=== PATIENT | female | born 1950 | race Caucasian/White ===

== ENCOUNTER 2018-11-05 11:40 | Outpatient (CLI) | payer MEDICARE, BC, SELFPAY ==
[2018-11-05 12:57] LABS: Hemoglobin A1C 6.2 % (4.5-6.2)
[2018-11-05 13:19] LABS: ALT 13 U/L (12-78); AST 13 U/L (15-37); Albumin 3.9 g/dL (3.4-5.0); Alkaline Phosphatase 63 U/L (46-116); Anion Gap 8.7 mmol/L (3-11); BUN 32 mg/dL (7-18); Bilirubin, Total 0.5 mg/dL (0.2-1.0); CO2 27.3 mmol/L (21.0-32.0); CREATININE 1.62 mg/dL (0.55-1.02); Calcium 9.4 mg/dL (8.5-10.1); Chloride 105 mmol/L (98-107); Cholesterol 199 mg/dL (50-200); Estimated GFR 31.41 (mL/min/1.73m2); Glucose 110 mg/dL (70-100); HDL Cholesterol 37 mg/dL (40-60); LDL CHOLESTEROL 142 mg/dL (<100); Sodium 141 mmol/L (136-145); Total Protein 7.4 g/dL (6.4-8.2); Triglyceride 103 mg/dL (30-150)
== END 2018-11-05 12:00 ==
DX: I10 Essential (primary) hypertension (principal); E03.9 Hypothyroidism, unspecified; E78.5 Hyperlipidemia, unspecified; R73.01 Impaired fasting glucose; E66.9 Obesity, unspecified
CPT/HCPCS: 36415; 80053; 80061; 83721; 83036

== ENCOUNTER 2018-11-17 00:37 | Outpatient (CLI) | payer MEDICARE, BC, SELFPAY ==
--- NOTE | 2018-11-17 16:00 | DI.MAMMO_ITS ---
SYMPTOMS/DIAGNOSIS: SCREENING, Z12.31 MAMMOGRAM: Mammograms were interpreted according to the usual protocol including computer analysis with CAD system, tomosynthesis and C view imaging. The patient has reportedly had a reduction mammoplasty since the last mammogram of June 2017. There is the expected reduction in breast volume and appropriate changes in breast architecture. No suspicious new intramammary mass seen. No clumped microcalcification seen. CONCLUSION: No specific evidence of malignancy at this time. Follow up mammogram requested in 12 months to follow asymmetric densities which are most likely related to post mammoplasty changes. Category I. Breast density Category B. MQSA ASSESSMENT OF FINDINGS: Negative. Category 1. Patient will receive a letter notifying them of these results. BI-RADS category B. There are scattered areas of fibroglandular density.
== END 2018-11-17 00:57 ==
DX: Z12.31 Encounter for screening mammogram for malignant neoplasm of breast (principal)
CPT/HCPCS: 77063; 77067

== ENCOUNTER 2018-12-01 01:59 | Outpatient (CLI) | payer MEDICARE, BC, SELFPAY ==
[2018-12-01 11:35] LABS: Hemoglobin A1C 5.7 % (4.5-6.2)
[2018-12-01 12:01] LABS: BUN 27 mg/dL (7-18); CREATININE 1.37 mg/dL (0.55-1.02); Chloride 102 mmol/L (98-107); Estimated GFR 38.12 (mL/min/1.73m2); Glucose 116 mg/dL (70-100); Potassium 3.9 mmol/L (3.5-5.1); Sodium 140 mmol/L (136-145)
== END 2018-12-01 02:19 ==
DX: N28.9 Disorder of kidney and ureter, unspecified (principal); R73.01 Impaired fasting glucose; Z01.818 Encounter for other preprocedural examination
CPT/HCPCS: 36415; 80048; 83036

== ENCOUNTER → 2019-01-19 10:21 | Outpatient (BNVA) | payer MEDICARE, BC, SELFPAY | PROVIDERS: Visit Provider Surgery | DX: K63.89 Other specified diseases of intestine (principal); I10 Essential (primary) hypertension; Z87.19 Personal history of other diseases of the digestive system; Z86.010 Personal history of colon polyps | CPT/HCPCS: 99212; 99213 ==

== ENCOUNTER 2019-01-23 13:11 | Day surgery (SDC) | payer MEDICARE, BC, SELFPAY ==
[2019-01-23 13:24] VITALS: BP 140/76; PULSE 60; RESP 18; TEMP 36.5; O2SAT 98
[2019-01-23] MEDS: Lactated Ringers 1,000 ML 80 ML IV (13:46)
--- NOTE | 2019-01-23 16:06 | W.PM.DSUDISC ---
Discharge Plan Disposition Patient Disposition: HOME Condition: Good Discharge Details Reason For Visit: ABNORMAL CT Attending Provider: Gala Breaux Primary Care Provider: Laura Samson Home Meds and New Rx's Prescriptions: Continued atenolol 25 mg tablet 25 mg PO DAILY Qty: 90 RF: 4 potassium citrate 10 mEq (1,080 mg) tablet extended release 20 meq PO TID Qty: 180 RF: 11 aspirin [Aspirin Low-Strength] 81 MG tablet,chewable 81 mg PO DAILY RF: 0 cholecalciferol (vitamin D3) 1,000 UNIT capsule 1,000 unit PO DAILY RF: 0 Discharge Instructions Additional Instructions: Findings: normal Follow up: no further scopes required Please call if you develop: fevers >101.5 Nausea or Vomiting Abdominal pain that is not transient DAY SURGERY UNIT POST COLONOSCOPY INSTRUCTIONS 1. Because there will be medication in your system for the next 24 hours, you may feel a little sleepy. Your coordination will be affected. Therefore: a. Do not drive or operate dangerous equipment for 24 hours. b. Do not drink alcohol beverages for 24 hours (not even beer). c. Plan to go home and rest for the day. 2. Generally there are no restrictions on your activity after a day or so has gone by, but you may feel a bit fatigued for a few days. 3 After you arrive home you may have a light meal and return to a normal diet as you can tolerate it without feeling sick to your stomach. 4. After surgery, you may feel pain or discomfort. This should be only transient, but if it persists please contact your doctor. 5. If there are any questions regarding the findings of your procedure, please feel free to contact your doctor. 6. If you are unable to contact your doctor with a problem, contact the hospital at [phone]. 7. Continue all your regular medications unless directed otherwise. I understand the above instructions and have no questions. Signature of Patient or Responsible Adult Escort Date/Time Name of Responsible Adult Escort Signature of Nurse Date/Time Activity:: no heavy liftig or strenuous activity x 24 hrs Diet:: sm lt meals today Discharge Orders Discharge Orders: Discharge Order (Routine); Ordered 01/23/19 Ordered By: Gala Breaux DS: Diagnosis Discharge Diagnosis (1) Incisional hernia: Status: Suspected
--- NOTE | 2019-01-23 16:08 | W.COLOREPORT ---
Date of service: 01/23/19 Time of Service: 16:09 Colonoscopy Report Date of procedure: 01/23/19 Pre-op diagnosis general: abnl CT scan Post-op diagnosis procedure note: same Procedure: CE Surgeon: Gala Breaux Anesthesia proc note operative: GETA Estimated blood loss (mL): 0 Pathology: none sent Complications: None Disposition: same day Prep: Miralax Retraction Time: 10 mins Procedure Description: After informed consent was obtained the patient was taken to the procedure room and placed in a left decubitous position. Monitors were applied and a time out was done. The patients name, date of , procedure, allergies to medications and metal in their body was reviewed. The patient was then sedated. Once sedated and comfortable a rectal exam was done. External exam was normal. Internal exam revealed a normal sphincter tone and no palpable masses. minor internal hemorrhoids. The scope was then introduced and retrofelexed. No internal hemorrhoids were identified. The scope was then advanced to the cecum without difficulty. The TI and appendiceal orifice were identified. The prep was good. The scope was then slowly retracted over 10 minutes back into the rectum. No a the a.m., polyps, diverticuli identified. The mucosa and vasculature are grossly normal in appearance. She does have an anastomosis in the sigmoid colon. There is no stenosis. It is widely patent. There is no signs of any abnormalities. The scope was removed and the patient was woken up and taken back to Same day surgery in stable condition. The patient tolerated the procedure well and there were no immediate complications. Follow up: The patient does not need any other repeat colonoscopy unless they develop changes in bowel habits or other new gastrointestinal complaints.
[2019-01-23 16:40] VITALS: BP 125/67; PULSE 54; RESP 16; TEMP 36; O2SAT 99
== END 2019-01-23 16:50 | disposition home or self-care (01) ==
PROVIDERS: Visit Provider Surgery
PROC: 0DJD8ZZ Inspection of Lower Intestinal Tract, Via Natural or Artificial Opening Endoscopic (ICD-10-PCS; CPT 45378; principal; 2019-01-23 13:15)
DX: R93.5 Abnormal findings on diagnostic imaging of other abdominal regions, including retroperitoneum (principal); Z90.49 Acquired absence of other specified parts of digestive tract; I10 Essential (primary) hypertension
CPT/HCPCS: 45378